=== PATIENT | male | born 1955 | race Caucasian/White ===

== ENCOUNTER 2023-02-26 15:27 | Emergency (ER) | payer OTHER ==
[~2023-02-26] VITALS: Ht 177.8 cm; Wt 108.9 kg
[2023-02-26] MEDS ORDERED: KENALOG 0.1%80 GM T (16:18)
[2023-02-26] MEDS ORDERED: PREDNISONE20 M1 PO (16:18)
== END 2023-02-26 16:39 | disposition home or self-care (01) ==
LOC: ED 15:27
DX: L23.7 Allergic contact dermatitis due to plants, except food (principal); M10.9 Gout, unspecified; I10 Essential (primary) hypertension; Z95.5 Presence of coronary angioplasty implant and graft